=== PATIENT | female | born 1950 | race Caucasian/White ===

== ENCOUNTER 2017-10-28 11:01 | Outpatient (CLI) | payer MEDICARE, OTHER ==
--- NOTE | 2017-10-28 18:38 | RAD ---
LEFT HUMERUS TWO VIEWS: 10/28/17 No fracture was noted. The humerus appeared intact. IMPRESSION: No acute findings. POS: HOME
--- NOTE | 2017-10-28 18:45 | RAD ---
LEFT SHOULDER THREE VIEWS: 10/28/17 No fracture or dislocation was seen. The AC joint is normal in width. The adjacent ribs appear intact . No clavicular fracture was seen. IMPRESSION: No acute finding. POS: HOME
== END 2017-10-28 11:02 | disposition home or self-care (01) ==
LOC: BURRAD 11:01
PROVIDERS: ATTEND Physician Assistant
DX: S49.92XA Unspecified injury of left shoulder and upper arm, initial encounter (principal); V80.010A Animal-rider injured by fall from or being thrown from horse in noncollision accident, initial encounter

== ENCOUNTER 2018-09-21 15:18 | Outpatient (CLI) | payer MEDICARE ==
--- NOTE | 2018-09-23 07:48 | RAD ---
RIGHT HIP TWO VIEWS: 09/21/18 Subtle femoral neck injuries could be missed. If pain persists, then followup images or MRI might be needed to assess more subtle injury. IMPRESSION: No acute finding. POS: HOME
== END 2018-09-21 15:19 | disposition home or self-care (01) ==
LOC: BURRAD 15:18
PROVIDERS: ATTEND Physician Assistant
DX: M79.18 Myalgia, other site (principal); V80.010A Animal-rider injured by fall from or being thrown from horse in noncollision accident, initial encounter

== ENCOUNTER 2018-12-27 18:21 | Emergency (ER) | payer MEDICARE ==
[2018-12-27] MEDS ORDERED: HYDROcodone/Acetaminophen 5/325 mg Tablet ONE (19:40)
--- NOTE | 2018-12-27 20:26 | RAD ---
LEFT ANKLE THREE VIEWS: 12/27/18 A small nondisplaced fracture is seen through the lateral malleolus near its tip. There is overlying soft tissue swelling as expected. The ankle joint itself appears intact. A tiny calcaneal spur was n oted. IMPRESSION: Small nondisplaced fracture near the tip of the lateral malleolus. Code T POS: HOME
== END 2018-12-27 19:50 | disposition home or self-care (01) ==
LOC: BURERS 18:21
DX: S82.65XA Nondisplaced fracture of lateral malleolus of left fibula, initial encounter for closed fracture (principal); W23.0XXA Caught, crushed, jammed, or pinched between moving objects, initial encounter
CPT/HCPCS: 29515

== ENCOUNTER 2019-09-04 11:07 | Outpatient (CLI) | payer MEDICARE ==
--- NOTE | 2019-09-04 12:00 | RAD ---
KUB: Date: 09/04/2019 COMPARISON: None. HISTORY: Abdominal pain. 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 The bowel gas pattern appears nonobstructed. No acute osseous abnormality. IMPRESSION: Nonobstructed bowel gas pattern. POS: [facility]ON
== END 2019-09-04 11:08 | disposition home or self-care (01) ==
LOC: BURRAD 11:07
PROVIDERS: ATTEND Registered Nurse Community Health
DX: R10.84 Generalized abdominal pain (principal)
CPT/HCPCS: 74018

== ENCOUNTER 2022-03-30 11:51 | Outpatient (CLI) | payer MEDICARE | END 2022-03-30 11:52 | disposition home or self-care (01) | LOC: BURRAD 11:51 | PROVIDERS: ATTEND Physician Assistant | DX: M25.561 Pain in right knee (principal); M25.461 Effusion, right knee; M17.11 Unilateral primary osteoarthritis, right knee ==

== ENCOUNTER 2022-08-10 09:08 | Outpatient (CLI) | payer MEDICARE ==
[2022-08-10 09:29] LABS: #Basophils 0.1 thou/uL (0.0-0.2); #Eosinphils 0.1 thou/uL (0.0-0.7); #Lymphocytes 1.9 thou/uL (1.20-3.40); #Monocytes 0.3 thou/uL (0.11-0.59); #Neutrophils 4.7 thou/uL (1.40-6.50); %Eosinophils 1.7 % (0.0-10.0); %Lymphocytes 26.9 % (21.0-51.0); %Monocytes 3.7 % (0.0-10.0); %Neutrophils 66.8 % (42.0-75.0); Hemoglobin 13.4 g/dL (12.0-16.0); Mean Corpuscular HGB CONC 33.5 g/dL (32.0-36.0); Mean Corpuscular Volume 89.4 fl (78.0-98.0); Mean Platelet Volume 8.3 fL (7.4-10.4); Platelet Count 250 10x3/uL (130-400); RBC Distribution Width 12.7 % (11.5-14.5); Red Blood Cell (RBC) Count 4.48 mill/uL (4.20-5.40)
[2022-08-10 09:52] LABS: ALT (SGPT) 17 U/L (8-55); AST (SGOT) 13 U/L (5-34); Albumin 4.6 g/dL (3.4-4.8); Alkaline Phosphatase 97 U/L (40-110); Anion Gap 13 mmol/L (10-20); BUN (Urea Nitrogen) 17 mg/dL (9.8-20.1); Bilirubin, Total 1.1 mg/dL (0.2-1.2); Calc. Creatinine Clearance 0 mL/min (70-130); Calcium 9.7 mg/dL (7.8-10.44); Carbon Dioxide 26 mmol/L (23-31); Chloride 105 mmol/L (98-107); Estimated GFR 86; Globulin 2.6 g/dL (2.4-3.5); Glucose 90 mg/dL (83-110); Protein, Total 7.2 g/dL (5.8-8.1); Sodium 140 mmol/L (136-145)
[2022-08-10 12:02] LABS: Iron 85 ug/dL (50-170)
== END 2022-08-10 09:09 | disposition home or self-care (01) ==
LOC: BURRAD 09:08
PROVIDERS: ATTEND Physician Assistant
DX: R07.9 Chest pain, unspecified (principal); R53.82 Chronic fatigue, unspecified; D64.9 Anemia, unspecified; V80.010A Animal-rider injured by fall from or being thrown from horse in noncollision accident, initial encounter
CPT/HCPCS: 36415; 71046; 80053; 83540; 85025